=== PATIENT | female | born 1955 | race African-American/Black ===

== ENCOUNTER 2016-07-08 20:38 | Inpatient (IN) | payer BC, OTHER ==
[~2016-07-08] VITALS: Ht 170.2 cm; Wt 90.7 kg
--- NOTE | 2016-07-08 20:50 | NUR ---
Pt bib self c/o of chest discomfort since friday on and off . right leg pain since 07/04. Placed on monitor. Awaiting md order
--- NOTE | 2016-07-08 21:09 | NUR ---
Clotilde SERVICE DISPATCHER at bedside for eval
--- NOTE | 2016-07-08 21:20 | NUR ---
PROFESSOR OF FLORICULTURE AT BEDSIDE
--- NOTE | 2016-07-08 21:21 | NUR ---
RAC#20 IV ACCESS. BLOOD SAMPLE COLLECTED SENT TO LAB
[2016-07-08 21:23] LABS: BASOPHILS % (AUTO) 0.5 % (0.0-2.0); EOSINOPHILS # (AUTO) 0.1 /CMM (0.0-0.7); EOSINOPHILS % (AUTO) 1.7 % (0.0-6.0); HEMATOCRIT 40 % (33-45); LYMPHOCYTES % (AUTO) 23.3 % (20.0-44.0); MEAN CORPUSCULAR HEMOGLOBIN 30 PG (26.0-33.0); MEAN CORPUSCULAR HGB CONC 33 g/dl (31.0-36.0); MEAN CORPUSCULAR VOLUME 93 fL (82-100); MONOCYTES # (AUTO) 0.4 /CMM (0.1-1.30); MONOCYTES % (AUTO) 4.9 % (2.0-12.0); NEUTROPHILS # (AUTO) 6.3 /CMM (1.8-8.9); NEUTROPHILS % (AUTO) 69.6 % (43.0-81.0); PLATELET COUNT (AUTO) 212 /CMM (150-450); RDW COEFFICIENT OF VARIATION 12.5 (11.5-15.0); RED BLOOD CELL COUNT(AUTO) 4.29 MIL/uL (4.0-5.2); WHITE BLOOD COUNT (AUTO) 8.8 K/uL (4.3-11.0)
[2016-07-08 21:32] LABS: CALCIUM, SERUM 9.6 mg/dL (8.5-10.1); CARBON DIOXIDE 32 mmol/L (21-32); CHLORIDE 106 mmol/L (98-107); CREATININE 1.1 mg/dL (0.6-1.3); GFR 61 mL/min (>60); GLUCOSE 98 mg/dL (74-106); POTASSIUM 4.1 mmol/L (3.5-5.1); SODIUM SERUM 143 mmol/L (136-145); UREA NITROGEN, BLOOD 14 mg/dL (7-18)
--- NOTE | 2016-07-08 21:32 | NUR ---
XRAY AT BEDSIDE
[2016-07-08 21:39] LABS: TROPONIN I < 0.017 ng/mL (0.00-0.056)
[2016-07-08 21:44] LABS: ALANINE AMINOTRANSFERASE 14 U/L (12-78); ALBUMIN 3.8 g/dL (3.4-5.0); ALKALINE PHOSPHATASE 93 U/L (46-116); ASPARTATE AMINOTRANSFERASE 17 U/L (15-37); B-TYPE NATRIURETIC PEPTIDE 185 PG/ML (0-125); BILIRUBIN,DIRECT 0.1 mg/dL (0.0-0.2); BILIRUBIN,TOTAL 0.4 mg/dL (0.2-1.0); TOTAL PROTEIN, SERUM 8.1 g/dL (6.4-8.2)
[2016-07-08 21:48] LABS: D-DIMER 0.5 mg/L(FEU (0.17-0.50); INR 0.91 (0.87-1.13); PROTHROMBIN TIME 9.7 SECS (9.5-12.7)
--- NOTE | 2016-07-08 22:44 | NUR ---
CALLED NURSING SEAM STAY STITCHER FOR TELE BED
--- NOTE | 2016-07-08 23:20 | NUR ---
GAVE REPORT TO PINKY WOMACK TELE 112-2. CHEST PAIN ADMITTING BARREL HEADER SLAVA ECHEVERRIA.
[2016-07-08 23:30] VITALS: BP 146/91
--- NOTE | 2016-07-08 23:30 | NUR ---
SCOUT PROFESSIONAL SPORTS INITIAL NOTE RECEIVED PT VIA SIRISHARGRIS FROM ED. PT A/O X4 AND ABLE TO MAKE NEEDS KNOWN. TELE- SINUS RHYTHM. AMBULATORY, CONTINENT OF BOWEL AND BLADDER. NO C/O OF PAIN OR DISCOMFORT A THIS TIME. AUSCULTATED LUNG AND HEART SOUNDS. FULL BODY ASSESSMENT PERFORMED. IV RAC INTACT, PATENT AND FLUSHING WELL. CALL LIGHT WITHIN EASY REACH AT ALL TIMES. WILL CONTINUE TO MONITOR.
[2016-07-09] VITALS: BP_SYST 125; BP_SYST 146; BP_DIAS 60; BP_DIAS 91
[2016-07-09] MEDS ORDERED: FURO20TA4 PO (00:36)
[2016-07-09] MEDS ORDERED: LISI-607 PO (00:36)
[2016-07-09] MEDS ORDERED: CARV6.252 PO (00:36)
[2016-07-09] MEDS ORDERED: TEMAZEPAM 7.5 MG CAPSULE ONE (02:12)
[2016-07-09] MEDS ORDERED: MAG HYDROX/AL HYDROX/SIMETH 30 ML UDC PO PRN (02:30)
[2016-07-09] MEDS ORDERED: ONDANSETRON HCL/PF 4 MG/2 ML VIAL IVP PRN (02:30)
[2016-07-09] MEDS ORDERED: TEMAZEPAM 15 MG CAPSULE PO PRN (02:30)
[2016-07-09] MEDS ORDERED: MAGNESIUM HYDROXIDE 30 ML UDC PO PRN (02:30)
--- NOTE | 2016-07-09 03:00 | NUR ---
RN NOTE PT C/O NOT BEING ABLE TO SLEEP. SPOKE WITH SLAVA NETWORK CONSULTANT WITH NEW ORDERS OF RESTORIL 7.5MG PO. ORDERS NOTED AND CARRIED OUT. ALL MEDS GIVEN ORDERED AND WELL TOLERATED. WILL CONTINUE TO MONITOR.
[2016-07-09 04:00] VITALS: BP 129/63
--- NOTE | 2016-07-09 06:31 | NUR ---
OPERATIONS/DISPATCH CLOSING pt remained stable during shift. all needs attended to promptly. will endorse to next shift for garth.
[2016-07-09 06:55] LABS: MAGNESIUM 1.8 mg/dL (1.8-2.4); PHOSPHORUS 3.8 mg/dL (2.5-4.9)
--- NOTE | 2016-07-09 07:27 | NUR ---
RN INITIAL NOTES: Received patient on bed during rounds, awake, alert and oriented x4, able to make needs known, call lights placed within reached, instructed to press call light when in need of any assistance, patient verbalized understanding of instructions. On RA, saturating well. With right antecubital IV PLug [id number], flushed with NS and patent. NO SOB, No LOC, respirations are even and unlabored, no acute distress noted. Kept clean and dry. Provided safety and comfort measures. NO pain or discomfort noted at this time. Patient BPR, minimal assistance. A/w Cardio consult today. To continue to monitor accordingly.
[2016-07-09 08:00] VITALS: BP 145/75
[2016-07-09] MEDS: PANTOPRAZOLE 40 MG TABLET.DR PO SCH (08:08)
[2016-07-09] MEDS: FUROSEMIDE 20 MG TABLET PO SCH (08:10)
[2016-07-09] MEDS: GABAPENTIN 300 MG CAPSULE PO SCH (08:13)
[2016-07-09] MEDS ORDERED: ASPIRIN 81 MG TAB.CHEW PO SCH (09:00)
[2016-07-09] MEDS ORDERED: CARVEDILOL 6.25 MG TABLET PO SCH (09:00)
[2016-07-09] MEDS ORDERED: LISINOPRIL (5MG) 5 MG TABLET PO SCH (09:00)
[2016-07-09 11:24] LABS: THYROID STIMULATING HORMONE 2.893 uIU/mL (0.358-3.74)
[2016-07-09 11:38] LABS: TROPONIN I < 0.017 ng/mL (0.00-0.056)
[2016-07-09 12:00] VITALS: BP 150/76
[2016-07-09] MEDS: SPIRONOLACTONE 25 MG TABLET PO SCH (12:00)
[2016-07-09] MEDS: NIFEdipine XL (30MG) 30 MG TAB PO SCH (13:46)
[2016-07-09] MEDS: ACETAMINOPHEN 325 MG TABLET PO PRN ×2 (14:10→21:09)
[2016-07-09 16:00] VITALS: BP 145/69
[2016-07-09] MEDS: LISINOPRIL (5MG) 5 MG TABLET PO SCH (17:16)
[2016-07-09] MEDS: CARVEDILOL 6.25 MG TABLET PO SCH (17:16)
--- NOTE | 2016-07-09 17:37 | NUR ---
RN NOTES: As per Dr. Hua mejia to order @[facility], noted and carried out. Addendum: 07/09/16 at 1846 by MARNIE RESENDEZ RN [place]
--- NOTE | 2016-07-09 18:46 | NUR ---
RN NOTES: Patient remain stable within shift, no signs and symptoms of distress noted. Afebrile. No chestpain noted. Maintain HOB elevated, aspiration precaution observed. Encouraged increased oral fluid intake. Kept clean and dry. Fall precaution observed.To endorsed to next shift for continuity of care.
--- NOTE | 2016-07-09 19:40 | NUR ---
RN INITIAL NOTE RECEIVED PT IN NO ACUTE DISTRESS IN BED. PT IS A/O X 4 AND ABLE TO MAKE NEEDS KNOWN. PT IS ON RA AND TOLERATING WELL WITH SPO2 @ 98%. PT NOT C/O ANY SOB, DIFFICULTY BREATHING OR PAIN AT THIS TIME. PT HAS RAC 20G THAT IS CLEAN DRY INTACT AND PATENT WITH SALINE FLUSH. CALL LIGHT WITHIN REACH AND ALL SAFETY MEASURES ENSURED AND CARRIED OUT. WILL CONTINUE TO MONITOR PT.
[2016-07-09 20:00] VITALS: BP 131/67
[2016-07-10] VITALS: BP 125/60
[2016-07-10 04:00] VITALS: BP 104/49
--- NOTE | 2016-07-10 06:41 | NUR ---
RN CLOSING NOTE PT REMAINS IN NO ACUTE DISTRESS IN BED. PT DID NOT HAVE ANY SIGNIFICANT CHANGE IN CONDITION. WILL ENDORSE TO AM RN FOR CONTINUITY OF CARE.
[2016-07-10 07:29] LABS: BASOPHILS % (AUTO) 0.4 % (0.0-2.0); EOSINOPHILS # (AUTO) 0.1 /CMM (0.0-0.7); EOSINOPHILS % (AUTO) 1.3 % (0.0-6.0); HEMATOCRIT 40 % (33-45); LYMPHOCYTES # (AUTO) 1.8 /CMM (0.8-4.8); LYMPHOCYTES % (AUTO) 30.3 % (20.0-44.0); MEAN CORPUSCULAR HEMOGLOBIN 30 PG (26.0-33.0); MEAN CORPUSCULAR HGB CONC 33 g/dl (31.0-36.0); MEAN CORPUSCULAR VOLUME 92 fL (82-100); MONOCYTES # (AUTO) 0.4 /CMM (0.1-1.30); MONOCYTES % (AUTO) 6.4 % (2.0-12.0); NEUTROPHILS # (AUTO) 3.7 /CMM (1.8-8.9); NEUTROPHILS % (AUTO) 61.6 % (43.0-81.0); PLATELET COUNT (AUTO) 236 /CMM (150-450); RDW COEFFICIENT OF VARIATION 12.9 (11.5-15.0); RED BLOOD CELL COUNT(AUTO) 4.32 MIL/uL (4.0-5.2)
[2016-07-10 07:37] LABS: CALCIUM, SERUM 8.6 mg/dL (8.5-10.1); CREATININE 0.8 mg/dL (0.6-1.3); POTASSIUM 3.9 mmol/L (3.5-5.1)
[2016-07-10 08:00] VITALS: BP 111/65
[2016-07-10] MEDS: PANTOPRAZOLE 40 MG TABLET.DR PO SCH (08:41)
[2016-07-10] MEDS: GABAPENTIN 300 MG CAPSULE PO SCH (08:42)
[2016-07-10] MEDS: NIFEdipine XL (30MG) 30 MG TAB PO SCH (08:42)
[2016-07-10] MEDS: CARVEDILOL 6.25 MG TABLET PO SCH (08:43)
[2016-07-10] MEDS: LISINOPRIL (5MG) 5 MG TABLET PO SCH (08:44)
[2016-07-10] MEDS: SPIRONOLACTONE 25 MG TABLET PO SCH (08:44)
[2016-07-10] MEDS: FUROSEMIDE 20 MG TABLET PO SCH (08:44)
[2016-07-10] MEDS ORDERED: HYDROCHLOROTHIAZIDE 25 MG TABLET PO SCH (09:00)
[2016-07-10 12:00] VITALS: BP 116/65
--- NOTE | 2016-07-10 15:30 | NUR ---
pt d/c home with family member.stable condition.All m.d orders noted and carried out.i.v removed.all belongings with patient.d/c teachings provided to patient.
== END 2016-07-10 15:36 | disposition home or self-care (01) | DRG 293 ==
LOC: ER 20:38 → TELE1 23:01 → MEDSG1 07-10 11:34
PROVIDERS: ADMIT Nurse Practitioner Acute Care; ATTEND Nurse Practitioner Acute Care
DX: I11.0 Hypertensive heart disease with heart failure (principal); K25.9 Gastric ulcer, unspecified as acute or chronic, without hemorrhage or perforation; I50.33 Acute on chronic diastolic (congestive) heart failure; I42.8 Other cardiomyopathies; E11.9 Type 2 diabetes mellitus without complications; E66.9 Obesity, unspecified; M54.31 Sciatica, right side; Z68.31 Body mass index [BMI] 31.0-31.9, adult
CPT/HCPCS: 36415; 71010-TC; 80048-TC; 80061-TC; 80076-TC; 83735-TC; 83880; 84100-TC; 84439-TC; 84443-TC; 84484-TC; 85025-TC; 85378-TC; 85730-TC; 87081-TC; 93307-TC; 93971-TC; A4606; Z7610